=== PATIENT | male | born 1940 | race Caucasian/White ===

== ENCOUNTER 2023-10-20 14:04 | Outpatient (CLI) | payer OTHER ==
[2023-10-20 14:48] LABS: BASOPHILS # (AUTO) 0.1 X10'3 (0-0.2); HEMOGLOBIN 14.2 g/dl (14.0-17.9); LYMPHOCYTES # (AUTO) 1.5 X10'3 (1.1-4.8); NEUTROPHILS # (AUTO) 3.1 X10'3 (1.8-7.7); WHITE BLOOD COUNT 6.1 X10'3 (4.5-11.0)
[2023-10-20 14:51] LABS: BASOPHILS % (AUTO) 0.9 % (0-1); EOSINOPHILS % (AUTO) 0.4 % (0-6); HEMATOCRIT 42.3 % (42.0-52.0); MEAN CORPUSCULAR HEMOGLOBIN 29.8 PG (27.0-31.0); MEAN CORPUSCULAR HGB CONC 33.6 g/dL (33.0-36.5); MEAN CORPUSCULAR VOLUME 88.7 FL (78-98); MEAN PLATELET VOLUME 8.9 FL (7.4-10.4); MONOCYTES # (AUTO) 1.5 X10'3 (0-0.9); MONOCYTES % (AUTO) 23.9 % (2-12); NEUTROPHILS % (AUTO) 50.8 % (42-75); PLATELET COUNT 95 X10'3 (140-440); RED BLOOD COUNT 4.77 X10'6 (4.70-6.10); RED CELL DISTRIBUTION WIDTH 15.4 % (11.5-14.5)
[2023-10-20 14:56] LABS: APTT 30 SECONDS (22-32); INR 1.1 INR; PROTHROMBIN TIME 11.4 SECONDS (9.0-12.0)
[2023-10-20 15:11] LABS: ALANINE AMINOTRANSFERASE 10 U/L (12-78); ALBUMIN 3.7 G/DL (3.4-5.0); ALBUMIN/GLOBULIN RATIO 0.8 (1.1-1.5); ALKALINE PHOSPHATASE 54 IU/L (46-116); ANION GAP 6 (8-16); ASPARTATE AMINO TRANSFERASE 9 U/L (10-37); BILIRUBIN,TOTAL 0.6 MG/DL (0.1-1.0); BLOOD UREA NITROGEN 12 MG/DL (7-18); BUN/CREATININE RATIO 16.2 (10.0-20.0); CALCIUM 8.7 MG/DL (8.5-10.1); CHLORIDE 101 MMOL/L (99-107); CREATININE 0.74 MG/DL (0.60-1.10); GLUCOSE 86 MG/DL (70-104); POTASSIUM 4.1 MMOL/L (3.5-5.1); PRO BRAIN NATRIURETIC PEPTIDE 346 PG/ML (0-450); SODIUM 134 MMOL/L (135-145); TOTAL CARBON DIOXIDE 26.6 MMOL/L (24-32); TOTAL PROTEIN 8.2 G/DL (6.4-8.2); eGFR > 90 ML/MIN
[2023-10-20] MEDS ORDERED: IODIXANOL 320 MG/ML INFUS..BTL 100ML IV ONE (15:23)
[2023-10-20 16:46] LABS: TOTAL CELLS COUNTED 100
[2023-10-20 16:49] LABS: PLATELET ESTIMATE DECREASED
[2023-10-25] MEDS ORDERED: ATOR40TA72 PO (12:43)
[2023-10-25] MEDS ORDERED: APIX5TAB5 PO (12:43)
== END 2023-10-20 23:59 | disposition home or self-care (01) ==
LOC: 64 CT 14:04
PROVIDERS: ATTEND Internal Medicine Cardiovascular Disease
DX: K57.30 Diverticulosis of large intestine without perforation or abscess without bleeding (principal); I35.0 Nonrheumatic aortic (valve) stenosis; K40.20 Bilateral inguinal hernia, without obstruction or gangrene, not specified as recurrent; R06.02 Shortness of breath; I65.29 Occlusion and stenosis of unspecified carotid artery; I77.89 Other specified disorders of arteries and arterioles; I25.10 Atherosclerotic heart disease of native coronary artery without angina pectoris; J98.4 Other disorders of lung; N28.1 Cyst of kidney, acquired; N32.89 Other specified disorders of bladder; M47.819 Spondylosis without myelopathy or radiculopathy, site unspecified; M16.0 Bilateral primary osteoarthritis of hip; M19.012 Primary osteoarthritis, left shoulder; M19.011 Primary osteoarthritis, right shoulder; J84.10 Pulmonary fibrosis, unspecified; J40 Bronchitis, not specified as acute or chronic; Z95.5 Presence of coronary angioplasty implant and graft; Z90.49 Acquired absence of other specified parts of digestive tract
CPT/HCPCS: 36415; 71046; 71275; 74174; 75572; 80053; 83880; 85007; 85025; 85610; 85730; J3490; Q9967

== ENCOUNTER 2023-11-18 07:19 | Inpatient (IN) | payer OTHER ==
[2023-11-17 10:03] LABS: BILIRUBIN,URINE NEGATIVE (Neg); CLARITY,URINE CLEAR (Clear); COLOR,URINE YELLOW (Yellow); GLUCOSE, URINE NEGATIVE (Neg); KETONES,URINE NEGATIVE (Neg); LEUKOCYTE ESTERASE ,URINE NEGATIVE (Neg); NITRITES, URINE NEGATIVE (Neg); OCCULT BLOOD,URINE NEGATIVE (Neg); PH,URINE 5.5 (4.8-8.0); PROTEIN,URINE NEGATIVE (Neg); UROBILINOGEN,URINE 0.2 E.U/dL (0.2-1.0)
[2023-11-17 10:07] LABS: UA COLLECTION TYPE CLN CATCH MIDSTREAM
[2023-11-17 10:10] LABS: BASOPHILS # (AUTO) 0.1 X10'3 (0-0.2); BASOPHILS % (AUTO) 1.1 % (0-1); EOSINOPHILS % (AUTO) 0.6 % (0-6); LYMPHOCYTES # (AUTO) 1.1 X10'3 (1.1-4.8); LYMPHOCYTES % (AUTO) 15.9 % (21-51); MEAN CORPUSCULAR HEMOGLOBIN 29.6 PG (27.0-31.0); MEAN CORPUSCULAR HGB CONC 33.6 g/dL (33.0-36.5); MEAN CORPUSCULAR VOLUME 88.1 FL (78-98); MEAN PLATELET VOLUME 8.5 FL (7.4-10.4); MONOCYTES # (AUTO) 2.1 X10'3 (0-0.9); MONOCYTES % (AUTO) 29.9 % (2-12); NEUTROPHILS # (AUTO) 3.7 X10'3 (1.8-7.7); NEUTROPHILS % (AUTO) 52.5 % (42-75); PRE OP HEMATOCRIT 44.4 % (42.0-52.0); PRE OP HEMOGLOBIN 14.9 g/dL (14.0-17.9); PRE OP INR 1.1 INR; PRE OP PROTIME 11.4 SECONDS (9.0-12.0); PRE OP WHITE BLOOD COUNT 7.1 10'3 (4.8-10.8); RED BLOOD COUNT 5.04 X10'6 (4.70-6.10); RED CELL DISTRIBUTION WIDTH 15.1 % (11.5-14.5)
[2023-11-17 10:18] LABS: ALBUMIN 3.7 G/DL (3.4-5.0); ALBUMIN/GLOBULIN RATIO 0.8 (1.1-1.5); ALKALINE PHOSPHATASE 60 IU/L (46-116); BLOOD UREA NITROGEN 12 MG/DL (7-18); BUN/CREATININE RATIO 13.6 (10.0-20.0); CALCIUM 8.3 MG/DL (8.5-10.1); CREATININE 0.88 MG/DL (0.60-1.10); PRE OP ALT 13 U/L (30-65); PRE OP AST 8 U/L (10-37); PRE OP BILIRUB, TOTAL 0.7 MG/DL (0.0-1.0); PRE OP GLUCOSE 134 MG/DL (70-104); PRE OP POTASSIUM 3.7 MMOL/L (3.4-5.1); PRE OP SODIUM 137 MMOL/L (135-145); PRO BRAIN NATRIURETIC PEPTIDE 258 PG/ML (0-450); TOTAL CARBON DIOXIDE 24.2 MMOL/L (24-32); TOTAL PROTEIN 8.2 G/DL (6.4-8.2); eGFR 83 ML/MIN
[2023-11-17 10:20] LABS: CHLORIDE 103 MMOL/L (99-107); PRE OP ANION GAP 10 (8-16)
[2023-11-17 10:31] LABS: PRE OP PLATELET COUNT 79 X10'3 (140-440)
[2023-11-17 10:32] LABS: PLATELET ESTIMATE DECREASED; TOTAL CELLS COUNTED 100
[2023-11-18] VITALS (28 sets, daily range): BP systolic 96–152; BP diastolic 52–84; PULSE 47–66; RESP 12–20; TEMP 97.3–98.3; O2SAT 91–100
[~2023-11-18] VITALS: Ht 188 cm; Wt 84.0 kg
[~2023-11-18 07:19] MED LIST: APIX5TAB5 PO; ondansetron/PF 4mg/2ml inj IV PRN
[2023-11-18] MEDS: aspirin 325mg tablet PO ONE (08:03)
[2023-11-18] MEDS: ringers solution, lacted 1,000 ML IV SCH ×2 (08:04→13:14)
[2023-11-18] MEDS: famotidine 20mg tablet PO ONE (08:04)
[2023-11-18] MEDS ORDERED: morphine 2 MG/ML inj. syringe IV PRN (09:35)
[2023-11-18] MEDS ORDERED: morphine 4 MG/ML inj SYRINge IV PRN (09:35)
[2023-11-18] MEDS ORDERED: ondansetron/PF 4mg/2ml inj IV PRN ×2 (09:35→12:30)
[2023-11-18] MEDS ORDERED: meperidine/PF 25mg/ml syringe IV PRN ×3 (09:35)
[2023-11-18] MEDS ORDERED: proCHLORperazine 10 MG/2 ml inj IV PRN ×2 (09:35→12:30)
[2023-11-18] MEDS ORDERED: iohexol 350MG/ML 100ml bottle IV ONE (10:36)
[2023-11-18] MEDS ORDERED: heparin 1,000 UNITS/NS 500ml 1,500 ML ONE (10:36)
[2023-11-18] MEDS ORDERED: sevoflurane 250ml liquid IH ONE (10:48)
[2023-11-18] MEDS ORDERED: midazolam 1 mg/ML 2ml injection ONE (10:57)
[2023-11-18] MEDS ORDERED: fentaNYL/PF 50MCG/1 ML 2ML syringe ONE (10:57)
[2023-11-18] MEDS ORDERED: propofol inj 20 ML IV ONE (11:05)
[2023-11-18] MEDS ORDERED: protamine sulfate 10mg/ml inj. ONE (11:16)
[2023-11-18] MEDS ORDERED: heparin 1,000unit/ml 10ml vial 10 ML ONE (11:17)
[2023-11-18] MEDS ORDERED: labetalol 20mg/4ml (5mg/ml) syringe IV PRN (12:30)
[2023-11-18] MEDS ORDERED: magnesium 4gm in 100ml NS 100 ML IV PRN (12:30)
[2023-11-18] MEDS ORDERED: potassium CL 10mEq/100ml bag 100 ML IV PRN (12:30)
[2023-11-18] MEDS ORDERED: acetaminophen 325mg tablet PO PRN (12:30)
[2023-11-18] MEDS ORDERED: potassium Cl 20 mEq SR tablet PO PRN (12:30)
[2023-11-18] MEDS ORDERED: ALPRAZolam 0.25mg tablet PO PRN (12:30)
[2023-11-18] MEDS ORDERED: potassium Cl 20mEq/100mL bag 100 ML IV PRN (12:30)
[2023-11-18] MEDS ORDERED: potassium Cl 40MEQ/270ML bag 250 ML IV PRN (12:30)
[2023-11-18] MEDS ORDERED: pantoprazole 40mg Tablet.DR PO PRN (12:30)
[2023-11-18] MEDS ORDERED: hydrALAZINE 20mg/ml inj. IV PRN (12:30)
[2023-11-18] MEDS ORDERED: docusate sod 100mg capsule PO PRN (12:30)
[2023-11-18] MEDS ORDERED: magnesium 2GM in 50ml NS 50 ML IV PRN (12:30)
[2023-11-18] MEDS ORDERED: diphenhydrAMINE 25mg capsule PO PRN (12:30)
[2023-11-18] MEDS ORDERED: potassium Cl 40MEQ/1/2NS 520ml 520 ML IV PRN (12:30)
[2023-11-18] MEDS: phenylephrine inj 50 MG in normal saline 250ml IV solN IV SCH (13:13)
[2023-11-18] MEDS: nitroPRUSSIDE (NIPRIDE) (200MCG/ML) 100ML Drip IV SCH (13:13)
[2023-11-18] MEDS: normal saline 1000ml 1,000 ML IV SCH (14:00)
[2023-11-18] MEDS: HYDROcodone/acetaminophen 5mg/325mg tablet PO PRN (14:13)
[2023-11-18] MEDS: HYDROcodone/acetaminophen 5mg/325mg tablet PO ONE (15:36)
[2023-11-18] MEDS: sod chloride 0.9% 10ml flush syringe IV SCH (16:00)
[2023-11-18] MEDS: vancomycin/NS 1 GM ADD-VANTAGE 250 ML IV SCH (21:19)
[2023-11-19 02:00] VITALS: BP 121/49; PULSE 80; RESP 20; TEMP 98.2; O2SAT 92
[2023-11-19 06:00] VITALS: BP 113/53; PULSE 79; RESP 23; TEMP 97.7; O2SAT 92
[2023-11-19 06:47] LABS: BASOPHILS # (AUTO) 0.1 X10'3 (0-0.2); BASOPHILS % (AUTO) 0.5 % (0-1); EOSINOPHILS % (AUTO) 0.2 % (0-6); HEMATOCRIT 33.8 % (42.0-52.0); HEMOGLOBIN 11.3 g/dl (14.0-17.9); LYMPHOCYTES # (AUTO) 1.1 X10'3 (1.1-4.8); LYMPHOCYTES % (AUTO) 7.4 % (21-51); MEAN CORPUSCULAR HEMOGLOBIN 29.6 PG (27.0-31.0); MEAN CORPUSCULAR HGB CONC 33.4 g/dL (33.0-36.5); MEAN CORPUSCULAR VOLUME 88.4 FL (78-98); MEAN PLATELET VOLUME 9.7 FL (7.4-10.4); MONOCYTES # (AUTO) 4.5 X10'3 (0-0.9); MONOCYTES % (AUTO) 29.3 % (2-12); NEUTROPHILS # (AUTO) 9.5 X10'3 (1.8-7.7); NEUTROPHILS % (AUTO) 62.6 % (42-75); PLATELET COUNT 58 X10'3 (140-440); RED BLOOD COUNT 3.83 X10'6 (4.70-6.10); RED CELL DISTRIBUTION WIDTH 15.4 % (11.5-14.5); WHITE BLOOD COUNT 15.2 X10'3 (4.5-11.0)
[2023-11-19 07:09] LABS: ALANINE AMINOTRANSFERASE 11 U/L (12-78); ALBUMIN 2.9 G/DL (3.4-5.0); ALBUMIN/GLOBULIN RATIO 0.9 (1.1-1.5); ALKALINE PHOSPHATASE 44 IU/L (46-116); ANION GAP 7 (8-16); ASPARTATE AMINO TRANSFERASE 12 U/L (10-37); BLOOD UREA NITROGEN 11 MG/DL (7-18); BUN/CREATININE RATIO 14.1 (10.0-20.0); CALCIUM 8.1 MG/DL (8.5-10.1); CHLORIDE 105 MMOL/L (99-107); CREATININE 0.78 MG/DL (0.60-1.10); GLUCOSE 112 MG/DL (70-104); MAGNESIUM 1.9 MG/DL (1.5-2.4); POTASSIUM 4.1 MMOL/L (3.5-5.1); PRO BRAIN NATRIURETIC PEPTIDE 361 PG/ML (0-450); SODIUM 136 MMOL/L (135-145); TOTAL CARBON DIOXIDE 23.9 MMOL/L (24-32); TOTAL PROTEIN 6.3 G/DL (6.4-8.2); eCRCL 86 ML/MIN; eGFR > 90 ML/MIN
[2023-11-19 07:19] LABS: PLATELET ESTIMATE DECREASED; TOTAL CELLS COUNTED 100
[2023-11-19 07:21] LABS: ANISOCYTOSIS FEW; LARGE PLATELETS FEW
[2023-11-19 11:00] VITALS: BP 116/56; PULSE 85; RESP 22; TEMP 97.7; O2SAT 94
== END 2023-11-19 15:41 | disposition home or self-care (01) | DRG 267 ==
LOC: PAS IN 07:19 → EDSTATUS 10:00 → PCU 3S 16:58
PROVIDERS: ADMIT Internal Medicine Cardiovascular Disease; ATTEND Internal Medicine Cardiovascular Disease
PROC: 027F3ZZ Dilation of Aortic Valve, Percutaneous Approach (ICD-10-PCS; 2023-11-18)
PROC: 03HY32Z Insertion of Monitoring Device into Upper Artery, Percutaneous Approach (ICD-10-PCS; 2023-11-18)
PROC: B3101ZZ Fluoroscopy of Thoracic Aorta using Low Osmolar Contrast (ICD-10-PCS; 2023-11-18)
PROC: B41G1ZZ Fluoroscopy of Left Lower Extremity Arteries using Low Osmolar Contrast (ICD-10-PCS; 2023-11-18)
PROC: B41F1ZZ Fluoroscopy of Right Lower Extremity Arteries using Low Osmolar Contrast (ICD-10-PCS; 2023-11-18)
PROC: 02RF38N Replacement of Aortic Valve with Zooplastic Tissue, using Rapid Deployment Technique, Percutaneous Approach (ICD-10-PCS; principal; 2023-11-18 10:48)
DX: I35.0 Nonrheumatic aortic (valve) stenosis (principal); Z00.6 Encounter for examination for normal comparison and control in clinical research program; J44.9 Chronic obstructive pulmonary disease, unspecified; I25.10 Atherosclerotic heart disease of native coronary artery without angina pectoris; I73.9 Peripheral vascular disease, unspecified; Z98.61 Coronary angioplasty status; Z86.718 Personal history of other venous thrombosis and embolism; Z79.01 Long term (current) use of anticoagulants; I34.2 Nonrheumatic mitral (valve) stenosis
CPT/HCPCS: 33361; 36415; 71045; 76937; 80053; 81003; 82948; 83735; 83880; 85007; 85025; 85347; 85610; 85730; 86885; 86900; 86901; 86920; 87081; 93005; 93308; 96360; A4615; A4618; A6223; A6258; A6449; C1726; C1756; C1760; C1769; C1894; G0378; J1644; J2250; J2370; J2704; J2720; J3010; J3370; J3490; J7030; J7040; J7050; J7120; Q9967